=== PATIENT | male | born 2000 | race Asian ===

== ENCOUNTER 2025-04-17 05:09 | Emergency (ER) | payer BC ==
[~2025-04-17] VITALS: Ht 170.2 cm; Wt 125.2 kg
[2025-04-17 05:48] LABS: MEAN PLATELET VOLUME 8.2 FL (7.4-10.4); RED CELL DISTRIBUTION WIDTH 13.9 % (11.5-14.5)
--- NOTE | 2025-04-17 05:54 | RADIOLOGY REPORT ---
CHEST RADIOGRAPH Indication: CP Technique: Single frontal view of the chest was obtained Comparison: None FINDINGS: Lines and Tubes: None Lungs: No focal consolidation. Pleura: No effusion. No pneumothorax. Cardiomediastinal contours: Unremarkable Bones: No acute osseous abnormality. IMPRESSION: 1. No acute cardiopulmonary disease.
[2025-04-17 06:03] LABS: CREATININE 1.09 MG/DL (0.60-1.10); PRO BRAIN NATRIURETIC PEPTIDE < 30 PG/ML (0-125); TOTAL CARBON DIOXIDE 24.4 MMOL/L (24-32); eCRCL 96 ML/MIN; eGFR 82 ML/MIN
--- NOTE | 2025-04-17 06:38 | Physician Documentation ---
History of Present Illness General Chief Complaint: Syncope Stated Complaint: FALL M BLS Time Seen by MD: 06:34 OK to notify your PCP?: No Source: patient, RN notes reviewed Mode of Arrival: EMS Exam Limitations: no limitations History of Present Illness Initial Comments 25-year-old male brought to the ED via EMS after a syncopal episode and ground level fall. Patient reports he has had a sore throat, body aches, and occa sional cough for the last two days. All yesterday he was generally feeling unwell. Last night around 0400 patient urinated and just after was attempting to clear his throat of phlegm when he had a gag reflex, and then passed out. Patient seems to have regained consciousness as he was falling to the ground has he remembers the hitting the ground. Patient denies history of syncope. He denies any chest pain or shortness of breath. The patient notes his father had similar symptoms of sore throat and feeling unwell prior to him. Medication Reconciliation Allergies: Coded Allergies: No Known Allergies (Unverified , 04/17/25) Past Medical History Past Medical History: No Pertinent History Past Surgical History: no surgical history Drug Use: none Lives In: Home Review of Systems All Other Systems at this time: Reviewed and Negative ROS Laceration to forehead as well as other positive symptoms as stated above in the HPI, otherwise all systems are reviewed and negative. Physical Exam Physical Exam Vital Signs: RN Vital Signs have been reviewed: Yes, Temperature: 101.3, Source: Oral, Heart Rate: 100, Respiratory Rate: 25, BP: 144/91, Pulse Oximetry: 94, Weight: 125.200 Pulse Oximetry Reflects: adequate oxygenation Physical Exam VITALS: Reviewed and as above. GENERAL: Alert, no apparent distress. HEENT: 4cm horizontal laceration to the right forehead. Posterior oropharyngeal erythema without exudates, strawberry tongue. Normocephalic, PERRL, EOMI, dry mucosa. RESPIRATORY: Lungs clear, normal breath sounds, no respiratory distress. CHEST: No accessory muscle use, no retractions CV: Tachycardic. Regular rhythm, no edema, no murmur, No: JVD GI: Soft, non-tender, bowels sounds present, no rebound, guarding, or rigidity MUSCULOSKELETAL No deformities, no edema SKIN: See HEENT. Mildly diaphoretic. Skin is warm. Warm and dry, no rash NEURO: Oriented x4, No motor or sensory deficit PSYCH: Normal mood and affect, no agitation Procedures Laceration/Wound Repair Laceration/Wound Repair : Location: right forehead Length (cm): 4 Anesthesia: Lidocaine w/ Epi Volume Anesthetic (mls): 6 Prep: irrigated by nurse, scrubbed, soaked Undermining: none Margins: flaps aligned Foreign Body: not identified Repaired: skin Wound Repaired With: sutures Suture Size/Type: 4-0, ethilon Number of Superficial Sutures: 7 Layer Closure?: No Splint Applied?: No Sling Applied?: No Tolerated Procedure Well?: yes, no complications Progress Results/Orders Reviewed/noted all lab results: Yes Results/Orders Completed Orders - OHLFS,CYNDI Anders MD Normal Saline 1000ml (0.9% Sodium Chlori (04/17/25 07:00) Ceftriaxone 2gm/D5w 50ml Bag (Rocephin 2 (04/17/25 07:40) Ketorolac Trometh 15mg/Ml Vial (Toradol (04/17/25 07:40) Normal Saline 1000ml (0.9% Sodium Chlori (04/17/25 08:00) Acetaminophen 1,000mg/100ml Iv (Ofirmev (04/17/25 08:00) Ceftriaxone 2gm/D5w 50ml Bag (Rocephin 2 (04/18/25 08:00) Ceftriaxone 2gm/D5w 50ml Bag (Rocephin 2 (04/17/25 08:50) Lidocaine 1% W/Epi 1:100,000 (Xylocaine (04/17/25 09:30) Laboratory Tests Test 04/17/25 05:27 White Blood Count 8.9 Red Blood Count 5.34 Hemoglobin 15.0 Hematocrit 43.0 Mean Corpuscular Volume 80.6 Mean Corpuscular Hemoglobin 28.1 Mean Corpuscular Hemoglobin Concent 34.9 Red Cell Distribution Width 13.9 Platelet Count 195 Mean Platelet Volume 8.2 Neutrophils (%) (Auto) 81.0 H Lymphocytes (%) (Auto) 9.2 L Monocytes (%) (Auto) 7.7 Eosinophils (%) (Auto) 1.7 Basophils (%) (Auto) 0.4 Neutrophils # (Auto) 7.2 Lymphocytes # (Auto) 0.8 L Monocytes # (Auto) 0.7 Eosinophils # (Auto) 0.1 Basophils # (Auto) 0.0 CBC Comment Sodium Level 139 Potassium Level 3.9 Chloride Level 104 Carbon Dioxide Level 24.4 Anion Gap 11 Blood Urea Nitrogen 20 H Creatinine 1.09 Estimated GFR/1.73 m2 82 BUN/Creatinine Ratio 18.3 Glucose Level 122 H Calcium Level 8.9 Troponin I High Sensitivity 6 Pro-B-Type Natriuretic Peptide < 30 Albumin 4.0 Chemistry Comments EKG/XRAY/CT/US/VASC/MRI EKG : Additional Comment 0517: EKG interpreted by myself to show sinus tachycardia at a rate of 104bpm. Normal axis, no STEMI. Chest X-Ray : Additional Comments CHEST RADIOGRAPH Indication: CP Technique: Single frontal view of the chest was obtained Comparison: None FINDINGS: Lines and Tubes: None Lungs: No focal consolidation. Pleura: No effusion. No pneumothorax. Cardiomediastinal contours: Unremarkable Bones: No acute osseous abnormality. IMPRESSION: 1. No acute cardiopulmonary disease. Reviewed by myself CT #1: Interpreted By: radiologist CT: head With Contrast?: No Impression CLINICAL INFORMATION: Fall injury. TECHNIQUE: Axial imaging was obtained through the brain without contrast. Axial CT imaging of the cervical spine was also obtained without contrast. Coronal and sagittal reformatted images were obtained, reviewed, and stored. One or more of the following dose reduction techniques were used: Automated exposure control. Adjustment of mA and/or kV according to patient size. CTDIvol = 67.56, 25.87, 0.34 mGy DLP = 1204.09, 556.87 mGy-cm COMPARISON: None FINDINGS: CT HEAD: There is no acute intracranial hemorrhage or extraaxial fluid collection. No mass effect or midline shift. The ventricles and sulci are within normal limits in size for age. Basal cisterns are patent. The calvarium is unremarkable. Paranasal sinuses and mastoid air cells are clear. CT CERVICAL SPINE: There is straightening of the normal cervical lordosis. No significant spondylolisthesis. Vertebral body heights are maintained. Posterior elements are intact. No evidence of acute fracture. Disc spaces are maintained. Prevertebral and paraspinal soft tissues are unremarkable. IMPRESSION: 1. No CT evidence of acute intracranial abnormality. 2. No evidence of acute fracture or spondylolisthesis in the cervical spine. 3. Straightening of the normal cervical lordosis, may be positional or due to muscle spasm. Reviewed by myself. CT #2: Interpreted By: radiologist CT: C-spine With Contrast?: No Impression CLINICAL INFORMATION: Fall injury. TECHNIQUE: Axial imaging was obtained through the brain without contrast. Axial CT imaging of the cervical spine was also obtained without contrast. Coronal and sagittal reformatted images were obtained, reviewed, and stored. One or more of the following dose reduction techniques were used: Automated exposure control. Adjustment of mA and/or kV according to patient size. CTDIvol = 67.56, 25.87, 0.34 mGy DLP = 1204.09, 556.87 mGy-cm COMPARISON: None FINDINGS: CT HEAD: There is no acute intracranial hemorrhage or extraaxial fluid collection. No mass effect or midline shift. The ventricles and sulci are within normal limits in size for age. Basal cisterns are patent. The calvarium is unremarkable. Paranasal sinuses and mastoid air cells are clear. CT CERVICAL SPINE: There is straightening of the normal cervical lordosis. No significant spondylolisthesis. Vertebral body heights are maintained. Posterior elements are intact. No evidence of acute fracture. Disc spaces are maintained. Prevertebral and paraspinal soft tissues are unremarkable. IMPRESSION: 1. No CT evidence of acute intracranial abnormality. 2. No evidence of acute fracture or spondylolisthesis in the cervical spine. 3. Straightening of the normal cervical lordosis, may be positional or due to muscle spasm. Reviewed by myself. Medical Decision Making Additional info obtained from: old records (no prior visits) Findings The patient is a 25-year-old male with a syncopal event likely secondary to being ill and slightly dehydrated, the patient was nonfocal and I examined the patient he did receive a CT of the cervical spine and of the head I have reviewed these images there was no evidence of fracture. The patient was hydrated in the emergency room. The patient was sutured and the patient will be instructed to have the sutures removed in five days. Prior hospitalizations have been reviewed. The patient's EKG was reviewed. The patient's pulse oximetry was interpreted as normal and adequate in his signed is monitor was interpreted as a sinus rhythm. I do believe his syncope was secondary to being ill and slightly dehydrated. He has a nonischemic looking EKG and normal labs. The patient does have what appears to be a pharyngitis he will be treated with ceftriaxone. Departure Time of Disposition: 08:01 Disposition: 01 HOME / SELF CARE / HOMELESS Impression: Primary Impression: Syncope Qualified Codes: R55 - Syncope and collapse Additional Impressions: Fall Qualified Codes: W19.XXXA - Unspecified fall, initial encounter 4cm forehead laceration, simple repair Pharyngitis Qualified Codes: J02.9 - Acute pharyngitis, unspecified Condition: Stable Discharge Instructions: Facial Laceration, [id number], Pharyngitis, [id number], Syncope, Adult, Near-Syncope Additional Instructions: Sutures should be removed in 5 days. This can be done in the emergency room, your regular doctor's office, or an urgent care clinic. Return for any signs of infection such as worsening redness, worsening pain, or pus discharge from the wound. Drink plenty of fluids. Rest. May take [id number] Tylenol and ibuprofen for pain. Return to the ER for any other concerns. Education Educated: Patient Educated regarding: diagnosis, treatment, need for follow up Signature Scribe Signature: Scribed for Cyndi Espinosa MD by Maryjo Rowland . 04/17/25 07:25 Attestation: The note accurately reflects work and decisions made by me.Cyndi Espinosa MD 04/23/25 10:17 CYNDI ESPINOSA MD Apr 17, 2025 06:38 MARYJO NAM Apr 17, 2025 07:34
--- NOTE | 2025-04-17 06:49 | ELECTROCARDIOGRAPH REPORT ---
[facility] Test Date: 2025-04-17 Test Time: 05:17:45 Pat Name: WALTER WILLSON Department: EMERGENCY ROOM Room: Gender: M [employer] Internship: : 2000 Requested By: PAKO IZQUIERDO Order Number: [id number] Reading MD: Dr. Pako Izquierdo Measurements Intervals [place] Rate: 104 P: 50 AK: 178 QRS: 86 QRSD: 93 T: 14 QT: 333 QTc: 438 Interpretive Statements Sinus tachycardia Electronically Signed On 04-17-2025 19:38:[address] Pako Izquierdo Please click the below link to view image of tracing.
[2025-04-17] MEDS: normal saline 1000ML IV soln IVB ONE ×2 (07:26→08:51)
--- NOTE | 2025-04-17 07:40 | RADIOLOGY REPORT ---
CLINICAL INFORMATION: Fall injury. TECHNIQUE: Axial imaging was obtained through the brain without contrast. Axial CT imaging of the ce rvical spine was also obtained without contrast. Coronal and sagittal reformatted images were obtaine d, reviewed, and stored. One or more of the following dose reduction techniques were used: Automated exposure control. Adjustment of mA and/or kV according to patient size. CTDIvol = 67.56, 25.87, 0.34 mGy DLP = 1204.09, 556.87 mGy-cm COMPARISON: None FINDINGS: CT HEAD: There is no acute intracranial hemorrhage or extraaxial fluid collection. No mass effect or midline shift. The ventricles and sulci are within normal limits in size for age. Basal cisterns are patent. The calvarium is unremarkable. Paranasal sinuses and mastoid air cells are clear. CT CERVICAL SPINE: There is straightening of the normal cervical lordosis. No significant spondylolis thesis. Vertebral body heights are maintained. Posterior elements are intact. No evidence of acute fr acture. Disc spaces are maintained. Prevertebral and paraspinal soft tissues are unremarkable. IMPRESSION: 1. No CT evidence of acute intracranial abnormality. 2. No evidence of acute fracture or spondylolisthesis in the cervical spine. 3. Straightening of the normal cervical lordosis, may be positional or due to muscle spasm.
[2025-04-17] MEDS: ketorolac trometh 15mg/ml vial 15 MG/ML ML IV ONE (08:04)
[2025-04-17] MEDS: acetaminophen 1,000mg/100ml IV 100 ML IV ONE (08:05)
[2025-04-17] MEDS: CefTRIAXone 2gm/D5W 50ml BAG 50 ML IV ONE ×2 (08:06→08:51)
[2025-04-17] MEDS: CefTRIAXone 2gm/D5W 50ml BAG 50 ML IV SCH (08:47)
[2025-04-17] MEDS: LIDOcaine 1% W/epiNEPHrine 1:100,000 20ml vial IJ ONE (09:43)
[2025-04-17 10:35] VITALS: BP 114/75; PULSE 107; RESP 16; TEMP 98.4; O2SAT 98
== END 2025-04-17 10:37 | disposition home or self-care (01) ==
LOC: ER 05:10
DX: S01.81XA Laceration without foreign body of other part of head, initial encounter (principal); R55 Syncope and collapse; J02.9 Acute pharyngitis, unspecified; W18.30XA Fall on same level, unspecified, initial encounter; Y93.89 Activity, other specified; Y92.89 Other specified places as the place of occurrence of the external cause; Y99.8 Other external cause status
CPT/HCPCS: 12013; 36415; 70450; 71045; 72125; 80048; 83880; 84484; 85025; 93005; 96361; 96365; 96368; 96375; 99285; J0131; J0696; J1885; J7030; A6449

== ENCOUNTER 2025-04-22 12:40 | Emergency (ER) | payer BC ==
[~2025-04-22] VITALS: Ht 170.2 cm; Wt 126.4 kg
[2025-04-22 12:47] VITALS: BP 155/96; PULSE 109; RESP 18; TEMP 97.6; O2SAT 96
--- NOTE | 2025-04-22 14:03 | Physician Documentation ---
History of Present Illness ~ Chief Complaint: Suture Removal Stated Complaint: SUTURE REMOVAL Time Seen by MD: 13:51 [facility] 25 Year old male returns to the ED for suture removal secondary to a previous syncopal episode where he incurred a head injury requiring lack repair. Denies any complications or increased pain or swelling or drainage Placed On: Apr 22, 2025 Tetanus Within 5 Years: No Medication Reconciliation Allergies: Coded Allergies: No Known Allergies (Unverified , 04/17/25) Past Medical History Past Medical History: No Pertinent History Past Surgical History: no surgical history Drug Use: none Lives In: Home Review of Systems All Other Systems at this time: Reviewed and Negative ROS As stated above in the HPI, otherwise all systems are reviewed and negative. Physical Exam Vital Signs: Temperature: 97.6, Source: Temporal, Heart Rate: 109, Respiratory Rate: 18, BP: 155/96, Pulse Oximetry: 96, Weight: 126.360 Physical Exam General: Alert, no apparent distress. HEENT: PERRL, EOMI, no injection, moist mucous membranes. 3.5 cm well healing laceration Neck: Full range of motion. Respiratory: Lungs clear, no respiratory distress. Neurologic: Oriented x4. Psychiatric: Normal mood and affect. Skin: Normal color, warm and dry. No edema, no ecchymosis. Progress Results/Orders Results/Orders Vital Signs 04/22/25 12:47 Temp 97.6 Pulse 109 Resp 18 B/P (MAP) 155/96 Pulse Ox 96 Medical Decision Making Findings Sutures removed by ED nurse without difficulty. Appears to be healing healing well with no signs of infection Differential Dx:Considerations: Include: Cellulitis, Suture removal, Wound dehiscence, Other Departure Disposition: 01 HOME / SELF CARE / HOMELESS Impression: Primary Impression: Laceration Condition: Stable Discharge Instructions: Suture Removal, Care After Referrals: NO PRIMARY CARE PROVIDER (PCP) Signature Scribe Signature: e Attestation: Scribed for Philippe Cedillo Sleeve Turner by Philippe Ho NP . 04/22/25 14:04 PHILIPPE CEDILLO NP Apr 22, 2025 14:03
== END 2025-04-22 14:08 | disposition home or self-care (01) ==
LOC: ER 12:40
DX: S11.91XD Laceration without foreign body of unspecified part of neck, subsequent encounter (principal); X58.XXXD Exposure to other specified factors, subsequent encounter
CPT/HCPCS: 99281